=== PATIENT | female | born 1955 | race Caucasian/White ===

== ENCOUNTER 2024-09-10 03:46 | Observation (INO) | payer MEDICARE ==
[2024-09-10 05:56] VITALS: BMI 31.6
[2024-09-10] MEDS ORDERED: Ondansetron PF 4 MG/2 ML Vial IVP PRN (06:53)
[2024-09-10] MEDS ORDERED: Dextrose 5% in Water 1,000 ML IV PRN (08:01)
[2024-09-10] MEDS ORDERED: Dextrose 50% Abboject 50 ML SYRINGE SLOW IVP PRN (08:01)
[2024-09-10] MEDS ORDERED: Insulin Lispro 100 UNIT/ML 10 ML VIAL SC PRN (08:01)
[2024-09-10] MEDS ORDERED: Glucagon 1 MG/ML KIT IM PRN (08:01)
[2024-09-10 08:12] LABS: #Basophils 0.04 10x3/uL (0.0-0.2); %Basophils 0.3 % (0.0-1.0); %Eosinophils 0.5 % (0.0-10.0); %Lymphocytes 8.7 % (21.0-51.0); %Monocytes 4.5 % (0.0-10.0); %Neutrophils 85.4 % (42.0-75.0); Hematocrit 37.5 % (36.0-47.0); Hemoglobin 12.3 g/dL (12.0-16.0); Mean Corpuscular HGB CONC 32.8 g/dL (32.0-36.0); Mean Corpuscular Hemoglobin 30.4 pg (27.0-31.0); Mean Corpuscular Volume 92.6 fL (78.0-98.0); Mean Platelet Volume 9.2 fL (7.4-10.4); Platelet Count 185 10x3/uL (130-400); RBC Distribution Width 12.8 % (11.5-14.5); Red Blood Cell (RBC) Count 4.05 mill/uL (4.20-5.40)
[2024-09-10 08:29] LABS: ALT (SGPT) 307 U/L (8-55); AST (SGOT) 275 U/L (5-34); Albumin 3.2 g/dL (3.4-4.8); Alkaline Phosphatase 215 U/L (40-110); Anion Gap 16 mmol/L (10-20); BUN (Urea Nitrogen) 23 mg/dL (9.8-20.1); Bilirubin, Total 2.5 mg/dL (0.2-1.2); Calc. Creatinine Clearance 85 mL/min (70-130); Calcium 8.6 mg/dL (7.8-10.44); Carbon Dioxide 23 mmol/L (23-31); Chloride 99 mmol/L (98-107); Estimated GFR 70; Globulin 2.9 g/dL (2.4-3.5); Glucose 148 mg/dL (83-110); Potassium 2.9 mmol/L (3.5-5.1); Protein, Total 6.1 g/dL (5.8-8.1); Sodium 135 mmol/L (136-145)
[2024-09-10 08:47] LABS: HBsAg Index 0.35 S/CO (0-0.99); Hep A IgM AB NONREACTIVE (NonReactive); Hep A IgM S/CO 0.19 S/CO (0-0.79); Hep B Core IgM Index 0.06 S/CO (0-0.79); Hep B Surf Ag NONREACTIVE S/CO (NonReactive); Hep C IgG Ab NONREACTIVE S/CO (NonReactive); Hep C Index 0.06 S/CO (0-0.79); Hepatitis B Core IgM Abs NONREACTIVE S/CO (NonReactive)
[2024-09-10] MEDS: Clopidogrel Bisulfate 75 MG TAB PO SCH (11:07)
[2024-09-10] MEDS: Potassium Chloride 20 MEQ in Premix 1 BAG IVPB SCH (11:07)
[2024-09-10] MEDS: Furosemide 80 MG TAB PO SCH (11:07)
[2024-09-10] MEDS: Enoxaparin 40 MG (0.4 mL) SYRINGE SC SCH (11:07)
[2024-09-10] MEDS: FLUoxetine HCl 20 MG CAP PO SCH (11:08)
[2024-09-10] MEDS: NIFEdipine XL 30 MG ER.TAB PO SCH (11:08)
[2024-09-10] MEDS: Losartan 25 MG TAB PO SCH (11:08)
[2024-09-10] MEDS: Isosorbide Mononitrate 60 MG ER.TAB PO SCH (11:08)
[2024-09-10] MEDS: Pantoprazole DR 40 MG TAB PO SCH (11:08)
[2024-09-10] MEDS: Carvedilol 6.25 MG TAB PO SCH (11:08)
[2024-09-10] MEDS: Aspirin Chewable 81 MG TAB PO SCH (11:08)
[2024-09-10] MEDS: Polyethylene Glycol 3350 17 GM Packet PO SCH (11:09)
[2024-09-10] MEDS: Potassium Chloride 20 MEQ TAB PO SCH (11:10)
[2024-09-10 11:12] LABS: Cardiac Risk 3.7 (Less than 4.5)
[2024-09-10 11:33] LABS: HIV (1/2) Antibody/Antigen NONREACTIVE (NonReactive); HIV 1/2 INDEX 0.04 S/CO (<1.00)
[2024-09-10] MEDS: Acetaminophen 325 MG TAB PO PRN (13:58)
[2024-09-10] MEDS: rOPINIRole HCl 2 MG TAB PO SCH (21:36)
[2024-09-10] MEDS: Amitriptyline HCl 25 MG TAB PO SCH (21:37)
[2024-09-10] MEDS: busPIRone HCl 10 MG TAB PO SCH (21:38)
[2024-09-11 04:58] LABS: #Basophils Less than 0.03 10x3/uL (0.0-0.2); %Basophils 0.3 % (0.0-1.0); %Eosinophils 2.6 % (0.0-10.0); %Lymphocytes 11.4 % (21.0-51.0); %Monocytes 5.3 % (0.0-10.0); %Neutrophils 80.3 % (42.0-75.0); Hematocrit 34.4 % (36.0-47.0); Hemoglobin 11.7 g/dL (12.0-16.0); Mean Corpuscular Hemoglobin 30.2 pg (27.0-31.0); Mean Corpuscular Volume 88.7 fL (78.0-98.0); Mean Platelet Volume 9.5 fL (7.4-10.4); Platelet Count 143 10x3/uL (130-400); RBC Distribution Width 12.5 % (11.5-14.5); Red Blood Cell (RBC) Count 3.88 mill/uL (4.20-5.40)
[2024-09-11 05:15] LABS: ALT (SGPT) 185 U/L (8-55); AST (SGOT) 98 U/L (5-34); Albumin 2.8 g/dL (3.4-4.8); Alkaline Phosphatase 187 U/L (40-110); Anion Gap 11 mmol/L (10-20); BUN (Urea Nitrogen) 12 mg/dL (9.8-20.1); Bilirubin, Total 1.5 mg/dL (0.2-1.2); Calc. Creatinine Clearance 92 mL/min (70-130); Calcium 8.7 mg/dL (7.8-10.44); Carbon Dioxide 26 mmol/L (23-31); Chloride 104 mmol/L (98-107); Estimated GFR 78; Globulin 2.9 g/dL (2.4-3.5); Glucose 177 mg/dL (83-110); Protein, Total 5.7 g/dL (5.8-8.1); Sodium 138 mmol/L (136-145)
[2024-09-11] MEDS: Insulin Lispro 100 UNIT/ML 10 ML VIAL SC PRN (05:45)
[2024-09-11] MEDS ORDERED: Potassium Chloride 20 MEQ TAB PO SCH (09:00)
[2024-09-11] MEDS: Potassium Chloride 20 MEQ TAB PO SCH (10:37)
[2024-09-11] MEDS: Potassium Bicarbonate/Cit Ac 20 MEQ TAB PO SCH (10:37)
[2024-09-11 12:00] VITALS: TEMP 98
[2024-09-11 13:13] VITALS: BP 125/58
== END 2024-09-11 13:00 | disposition home or self-care (01) ==
LOC: 2NO 05:07
PROVIDERS: ADMIT Family Medicine; ATTEND Family Medicine
DX: R74.01 Elevation of levels of liver transaminase levels (principal); E87.6 Hypokalemia; I10 Essential (primary) hypertension; E78.5 Hyperlipidemia, unspecified; I25.10 Atherosclerotic heart disease of native coronary artery without angina pectoris; I25.2 Old myocardial infarction; Z86.73 Personal history of transient ischemic attack (TIA), and cerebral infarction without residual deficits; Z87.891 Personal history of nicotine dependence; Z95.5 Presence of coronary angioplasty implant and graft; Z95.0 Presence of cardiac pacemaker; Z96.651 Presence of right artificial knee joint; Z88.8 Allergy status to other drugs, medicaments and biological substances; Z88.1 Allergy status to other antibiotic agents; Z79.82 Long term (current) use of aspirin; Z79.02 Long term (current) use of antithrombotics/antiplatelets; Z79.51 Long term (current) use of inhaled steroids; Z79.84 Long term (current) use of oral hypoglycemic drugs; Z79.899 Other long term (current) drug therapy
CPT/HCPCS: 76705; 80053 ×2; 80061; 80074; 82962 ×2; 85025 ×2; 87389; 96372 ×2; 96374; G0378 ×2; J1650 ×2; J1815; J3480; 36415; 36416

== ENCOUNTER 2025-10-28 00:28 | Inpatient (IN) | payer MEDICARE ==
[2025-10-28] MEDS ORDERED: Electrolyte Replacement Protocol 1 EACH FS SCH (02:30)
[2025-10-28] MEDS ORDERED: Melatonin 3 MG TAB PO PRN (02:30)
[2025-10-28] MEDS ORDERED: Calcium Carbonate 500 MG ChewTAB PO PRN (02:30)
[2025-10-28] MEDS ORDERED: PHOS-NAK 1 PKT PACK PO PRN (02:45)
[2025-10-28] MEDS ORDERED: Potassium Chloride 20 MEQ in Premix 1 BAG IVPB PRN (02:45)
[2025-10-28] MEDS ORDERED: Magnesium Sulfate In Water 4 GM in Premix 1 BAG IVPB PRN (02:45)
[2025-10-28 03:53] LABS: #Basophils 0.03 10x3/uL (0.0-0.2); #Eosinophils Less than 0.03 10x3/uL (0.0-0.7); #Monocytes 0.23 10x3/uL (0.11-0.59); #Neutrophils 7.37 10x3/uL (1.40-6.50); %Basophils 0.4 % (0.0-1.0); %Eosinophils 0.0 % (0.0-10.0); %Lymphocytes 8.1 % (21.0-51.0); %Monocytes 2.8 % (0.0-10.0); %Neutrophils 88.2 % (42.0-75.0); Hematocrit 36.4 % (36.0-47.0); Hemoglobin 11.5 g/dL (12.0-16.0); Mean Corpuscular Hemoglobin 28.3 pg (27.0-31.0); Mean Corpuscular Volume 89.7 fL (78.0-98.0); Platelet Count 220 10x3/uL (130-400); Red Blood Cell (RBC) Count 4.06 mill/uL (4.20-5.40); White Blood Cell (WBC) Count 8.35 10x3/uL (4.8-10.8)
[2025-10-28] MEDS ORDERED: Glucagon 1 MG/ML KIT IM PRN (03:59)
[2025-10-28] MEDS ORDERED: Dextrose 50% Abboject 50 ML SYRINGE SLOW IVP PRN (03:59)
[2025-10-28 04:47] LABS: ALT (SGPT) 15 U/L (Less than 34); AST (SGOT) 15 U/L (11-34); Albumin 3.2 g/dL (3.1-4.5); Alkaline Phosphatase 155 U/L (40-110); Anion Gap 12 mmol/L (10-20); BUN (Urea Nitrogen) 11 mg/dL (9.8-20.1); Bilirubin, Total 0.2 mg/dL (0.3-1.2); Calc. Creatinine Clearance 93 mL/min (70-130); Calcium 8.8 mg/dL (7.8-10.44); Carbon Dioxide 24 mmol/L (23-31); Chloride 106 mmol/L (98-107); Globulin 2.3 g/dL (2.4-3.5); Glucose 356 mg/dL (83-110); Magnesium 1.7 mg/dL (1.6-2.6); Potassium 3.9 mmol/L (3.5-5.1); Sodium 138 mmol/L (136-145)
[2025-10-28] MEDS: Guaifenesin DM 100-10/5 ML UDCUP PO PRN (04:55)
[2025-10-28] MEDS: Benzonatate 100 MG CAP PO SCH (08:43)
[2025-10-28] MEDS: Enoxaparin 40 MG (0.4 mL) SYRINGE SC SCH (08:43)
[2025-10-28] MEDS: NIFEdipine XL 90 MG ER.TAB PO SCH (08:44)
[2025-10-28] MEDS: Losartan 25 MG TAB PO SCH (08:44)
[2025-10-28] MEDS: Pantoprazole 40 MG DR.TAB PO SCH (08:45)
[2025-10-28] MEDS: Carvedilol 25 MG TAB PO SCH (08:45)
[2025-10-28] MEDS: Isosorbide Mononitrate 60 MG ER.TAB PO SCH (08:45)
[2025-10-28] MEDS: Gabapentin 300 MG CAP PO SCH (08:45)
[2025-10-28] MEDS: Acetaminophen 325 MG TAB PO PRN (08:50)
[2025-10-28] MEDS: Ergocalciferol 1.25 MG(50,000 UNITS) CAP PO SCH (08:55)
[2025-10-28] MEDS: Fioricet 325/50/40 mg Tablet PO SCH (11:15)
[2025-10-28] MEDS: Magnesium Sulfate In Water 4 GM in Premix 1 BAG IVPB SCH (11:16)
[2025-10-28 13:59] VITALS: BMI 32.1
[2025-10-28] MEDS: Carvedilol 6.25 MG TAB PO SCH (16:24)
[2025-10-28] MEDS ORDERED: Fioricet 325/50/40 mg Tablet PO PRN (17:14)
[2025-10-28] MEDS: Fioricet 325/50/40 mg Tablet PO PRN (17:25)
[2025-10-29 05:01] LABS: Anion Gap 15 mmol/L (10-20); BUN (Urea Nitrogen) 15 mg/dL (9.8-20.1); Calc. Creatinine Clearance 90 mL/min (70-130); Calcium 8.9 mg/dL (7.8-10.44); Carbon Dioxide 22 mmol/L (23-31); Chloride 104 mmol/L (98-107); Glucose 287 mg/dL (83-110); Potassium 3.9 mmol/L (3.5-5.1); Sodium 137 mmol/L (136-145)
[2025-10-29] MEDS: Magnesium Sulfate In Water 4 GM in Premix 1 BAG IVPB SCH (12:14)
[2025-10-29] MEDS: cloNIDine 0.1 MG TAB PO PRN (17:56)
[2025-10-30 04:25] LABS: Anion Gap 10 mmol/L (10-20); BUN (Urea Nitrogen) 13 mg/dL (9.8-20.1); Calc. Creatinine Clearance 106 mL/min (70-130); Calcium 8.5 mg/dL (7.8-10.44); Carbon Dioxide 25 mmol/L (23-31); Chloride 105 mmol/L (98-107); Glucose 321 mg/dL (83-110); Potassium 4.2 mmol/L (3.5-5.1); Sodium 136 mmol/L (136-145)
[2025-10-30 07:36] VITALS: BMI 33.0
[2025-10-30] MEDS: NIFEdipine XL 60 MG ER.TAB PO SCH (09:10)
[2025-10-30] MEDS: predniSONE 20 MG TAB PO SCH (13:51)
[2025-10-30 15:24] VITALS: TEMP 97.9
[2025-10-30 21:14] VITALS: BP 169/81
[2025-10-31] MEDS ORDERED: predniSONE 20 MG TAB PO SCH (08:00)
== END 2025-10-30 22:40 | disposition home or self-care (01) | DRG 203 ==
LOC: 2SE 01:22 → OBSVTOIN 02:30
PROVIDERS: ADMIT Internal Medicine; ATTEND Internal Medicine
DX: J40 Bronchitis, not specified as acute or chronic (principal); I11.0 Hypertensive heart disease with heart failure; I50.9 Heart failure, unspecified; I25.10 Atherosclerotic heart disease of native coronary artery without angina pectoris; E11.9 Type 2 diabetes mellitus without complications; Z96.651 Presence of right artificial knee joint; F41.9 Anxiety disorder, unspecified; F32.A Depression, unspecified; I16.0 Hypertensive urgency; E78.5 Hyperlipidemia, unspecified; Z88.8 Allergy status to other drugs, medicaments and biological substances; Z88.1 Allergy status to other antibiotic agents; Z79.82 Long term (current) use of aspirin; Z86.73 Personal history of transient ischemic attack (TIA), and cerebral infarction without residual deficits; Z79.899 Other long term (current) drug therapy; Z79.01 Long term (current) use of anticoagulants; I25.2 Old myocardial infarction; Z95.5 Presence of coronary angioplasty implant and graft; Z98.890 Other specified postprocedural states; Z95.0 Presence of cardiac pacemaker
CPT/HCPCS: 36415; 36416; 70450; 80048; 80053; 83735; 84100; 84484; 85025; 93005; 93010; 94640; J1650; J1815; J2060; J2919; J3475; J7512